=== PATIENT | female | born 1980 | race Caucasian/White ===

== ENCOUNTER 2016-07-01 23:59 | Emergency (ER) | payer OTHER ==
--- NOTE | ~2016-07-01 | EKG ---
PATIENT: MOJGAN PARDO UNIT #: [id number] Ventricular Rate: 87 BPM Atrial Rate: 87 BPM P-R Interval: 138 ms QRS Duration: 86 ms Q-T Interval: 354 ms QTC Calculation(Bezet): 425 ms P [place]: 38 degrees Calculated R [place]: 7 degrees Calculated T [place]: 34 degrees Diagnosis Line: Normal sinus rhythm Diagnosis Line: Low voltage QRS Diagnosis Line: Borderline ECG Diagnosis Line: When compared with ECG of 19-MAY-2012 20:32, Diagnosis Line: Questionable change in QRS axis Diagnosis Line: Confirmed by YEISON ROBERTS MD ([id number]) on Diagnosis Line: 07/03/2016 8:48:40 AM INTERPRETING MD: SHARI
[~2016-07-01 23:59] MED LIST: HUMALOG MIX 75/10 ML SUBQ; HUMALOG100 U/M1; LANTUS100 U/ML; METFORMIN HCL500 M2 PO; NO MEDICATIONS; ORUDIS75 M1 PO; PAIN RELIEF650 MG PO
[2016-07-02 00:56] LABS: ALKALINE PHOSPHATASE 67 U/L (32-92); ALT (SGPT) 15 U/L (10-40); AST (SGOT) 16 U/L (10-42); BILIRUBIN,TOTAL 0.7 mg/dL (0.2-2.0); BLOOD UREA NITROGEN 17 mg/dL (9-23); BUN/CREATININE RATIO 21.25; CALCIUM SERUM 8.8 mg/dL (8.4-10.2); CARBON DIOXIDE 23 mmol/L (22-31); CHLORIDE 100 mmol/L (100-111); CREATININE SERUM 0.8 mg/dL (0.6-1.4); GLOM FILT RATE Estimated 94.9 mL/min (>60); GLUCOSE FASTING 257 mg/dL (70-110); PROTEIN TOTAL SERUM 6.5 g/dL (6.0-8.3); SODIUM 132 mmol/L (135-145)
[2016-07-02 00:57] LABS: BILIRUBIN, DIRECT <0.1 mg/dL (0.0-0.2); BILIRUBIN,INDIRECT 0.6 mg/dL (0.0-0.9)
[2016-07-02 01:39] LABS: BASOPHIL# 0.1 X10e3 (0-0.3); BASOPHIL% 0.5 % (0-2.5); EOSINOPHIL% 0.2 % (0.0-7.0); HEMATOCRIT 41.1 % (35.0-45.0); HEMOGLOBIN 13.7 gm/dL (12.0-16.0); LYMPHOCYTE# 1.5 X10e3 (1.0-3.5); LYMPHOCYTE% 10.5 % (17.0-45.0); MEAN CELL VOLUME 87.6 FL (83-96); MEAN CORPUSCULAR HEMOGLOBIN 29.2 PG (28-34); MEAN CORPUSCULAR HGB CONC 33.3 g/dL (30-36); MEAN PLATELET VOLUME 8.9 FL (6.5-11.5); MONOCYTE# 0.8 X10e3 (0-1.0); MONOCYTE% 5.8 % (3.0-12.0); NEUTROPHIL# 11.9 X10e3 (1.5-7.1); PLATELET COUNT 212 X10e3 (140-420); RED BLOOD COUNT 4.69 X10e (3.90-5.30); RED CELL DISTRIBUTION WIDTH 13.4 % (11.0-15.5); WHITE BLOOD COUNT 14.3 X10e3 (4.0-10.5)
[2016-07-02 01:41] LABS: DIFF IND NO
== END 2016-07-02 02:00 | disposition home or self-care (01) ==
LOC: CED 23:59
PROVIDERS: Emergency Medicine
DX: R55 Syncope and collapse (principal); E11.9 Type 2 diabetes mellitus without complications; F41.9 Anxiety disorder, unspecified; F17.210 Nicotine dependence, cigarettes, uncomplicated; Z88.5 Allergy status to narcotic agent; Z79.4 Long term (current) use of insulin
CPT/HCPCS: 36415; 80048; 80076; 82947; 84703; 85025; 85379; 93005; 96361; 96372; 96374; 99285; J0500; J2405

== ENCOUNTER 2016-10-14 08:16 | Emergency (ER) | payer BC, OTHER ==
[~2016-10-14] VITALS: Ht 152.4 cm; Wt 65.8 kg
== END 2016-10-14 09:07 | disposition home or self-care (01) ==
LOC: CED 08:16
DX: M77.9 Enthesopathy, unspecified (principal); E11.9 Type 2 diabetes mellitus without complications; I10 Essential (primary) hypertension; F17.200 Nicotine dependence, unspecified, uncomplicated
CPT/HCPCS: 99283